=== PATIENT | female | born 1990 | race Caucasian/White ===

== ENCOUNTER 2024-08-15 07:56 | Outpatient (AMB) | payer OTHER, SELFPAY ==
--- NOTE | 2024-08-15 08:07 | MHC.PC.OV ---
Vital Signs 08/15/24 08:08 Height 5 ft 8.9 in Weight 183 lb BMI 27.1 BP 90/66 Blood Pressure Location Lt brachial Position Sitting Pulse 70 Pulse Source Pulse Oximeter Temp 97.1 F Temp Source Skin Pulse Oximetry (%) 96 Oxygen Delivery Method Room Air Intake Visit Reasons: establish care Intake Note: Patient is a new patient here to establish care for Asthma, GI issues, Possible Anemia, Scalp issues, Abnormal cycle, Depression, Anxiety, ADHD . Transferring care from Dr Carlton . Medical records have been requested and have not received. Requesting for dermatology for scalp, GI for stomach issues, GNY for abnormal cycle, Sheet Tester Required: No Braiding Operator: Not Required per policy Accompanied by: Self / Same As Patient Allergies acetaminophen [From Percocet] Allergy (Intermediate, Verified 08/15/24 08:26) upset stomach oxycodone [From Percocet] Allergy (Intermediate, Verified 08/15/24 08:26) upset stomach Medication List - Last Reconciled 08/15/24 by Cris Burden PA-C albuterol sulfate 90 mcg/actuation 2 puffs inhalation Q6H PRN Tobacco use date assessed: 08/15/24 Dental Screening Dental Screen Date: 08/15/24 Did you have a dental visit in the last 12 months?: Yes Did you have a dental problem in the last 6 months where you did not have access to dental care?: No Was dental information given to patient?: Patient has dentist HPI establish care HPI Details 34-year-old female coming to the office for the 1st time. Patient is not known to [facility]. Patient tells us today she was previously being seen as a pediatric patient has not had any adult PCP in the past. She has not had a Pap smear yet. She has tried hormonal contraceptive pills in the past and finds they are not helpful for her and come with mood issues. She sees a therapist weekly [facility] and is on a wait list for their psychiatrist. She has a prior diagnosis of anxiety, depression and ADHD and has not been treated for these since high school. She was on Lexapro and possibly Lamictal in the past without good benefit. She tells us she has an extensive list of foods that she can not eat and we will have epigastric pain after eating. Primarily with tomato based products and caffeine. With the epigastric pain she will often have nausea and does have alternating diarrhea and constipation. She was given Zofran in the past for her nausea which she finds helpful. Her pain typically last for several hours after eating before resolving spontaneously. [facility] Surgical History History of wisdom tooth extraction Family History Other Mental health disorder Substance use disorder Social History Housing: Apartment Alcohol intake: never Patient Tobacco Use Status: Former Tobacco user e-Cigarette/Vaping Use: Currently Using Second Hand Smoke Exposure: Yes Substance Use Type: Marijuana service: No Current occupational status: unemployed Cognitive needs: No Hearing needs: No Vision needs: Yes (Glasses) Female Reproductive History Menstrual control method: none Total pregnancies: 1 Ab induced: 1 History of abnormal pap smear: No Questionnaire PHQ-9 Over the last 2 weeks, how often have you been bothered by any of the following problems? 1. Little interest or pleasure in doing things: nearly every day 2. Feeling down, depressed, or hopeless: more than half the days 3. Trouble falling or staying asleep, or sleeping too much: nearly every day 4. Feeling tired or having little energy: nearly every day 5. Poor appetite or overeating: nearly every day 6. Feeling bad about yourself - or that you are a failure or have let yourself or your family down: not at all 7. Trouble concentrating on things, such as reading the newspaper or watching television: nearly every day 8. Moving or speaking so slowly that other people could have noticed. Or the opposite - being so fidgety or restless that you have been moving around a lot more than usual: nearly every day 9. Thoughts that you would be better off or of hurting yourself in some way: not at all Total score: 20 Depression Screening Interpretation: Positive Depression Screening Done: Yes Source: Developed by Drs. Nirav Mario, Brigette Blank, Ty Capone and colleagues, with an educational lelia from [employer] Thrive Questionnaire Date Thrive assessed: 08/15/24 I am a: Patient What is your living situation today?: I have a steady place to live Within the past 12 months, did the food you bought not last and you didn't have the money to get more?: Sometimes True Within the past 12 months, did you worry whether your food would run out before you got money to buy more?: Sometimes True Do you have trouble paying for medicines?: No Do you have trouble getting transportation to medical appointments?: No Do you have trouble paying your heating and electricity bill?: No Do you have trouble taking care of your child, family member or friend?: No Do you have trouble with day-to-day activities such as bathing, preparing meals, shopping, managing finances, etc.?: I choose not to answer this question Are you currently unemployed and looking for a job?: Yes Are you interested in more education?: Yes Please select the resources that you would like help with: None Currently or been in a relationship where the following occur: No concerns reported THRIVE Score: 2 AUDIT C Alcohol Use Questionnaire (AUDIT-C) 1. How often do you have a drink containing alcohol?: Never Total Score: 0 RAUDEL-7 AMB Questionnaire RAUDEL-7 Date RAUDEL - 7 assessed: 08/15/24 Feeling nervous, anxious, or on edge: 3 = Nearly every day Not being able to stop or control worryin = Nearly every day Worrying too much about different things: 3 = Nearly every day Trouble relaxin = Nearly every day Being so restless that it is hard to sit still: 3 = Nearly every day Becoming easily annoyed or irritable: 3 = Nearly every day Feeling afraid as if something awful might happen: 3 = Nearly every day Total RAUDEL-7 score (0-4 normal; 5-9 mild; 10-14 moderate; 15-21 severe): 21 Source: Developed by Drs. Nirav Mario, Brigette Blank, Ty Capone and colleagues, with an educational lelia from [employer] RAUDEL-7 Assessment Billing RAUDEL-7 Assessment Tool: RAUDEL-7 Assessment 77833 Review of Systems Const Denies body aches, Denies chills, Denies fever(s), Denies headache(s) and Denies poor appetite Eyes Reports no additional complaints ENT Denies dysphagia, Denies dizziness, Denies headache(s) and Denies odynophagia Card Denies chest pain, Denies syncope, Denies edema, Denies irregular heart rhythm, Denies lightheadedness and Denies dyspnea Resp Denies cough and Denies dyspnea GI Reports abdominal pain, Reports constipation, Denies dysphagia, Reports diarrhea, Reports nausea, Denies odynophagia and Denies vomiting Reports abnormal menses Musc Reports no additional complaints and Denies abnormal gait Skin/Breast Reports system reviewed and no additional complaints, except as documented Neuro Denies abnormal gait, Denies dizziness, Denies syncope and Denies headache(s) Psych Reports anxiety and Reports depression Physical exam (Primary Care) Vital Signs: Last Vital Signs Temp 97.1 F 08/15/24 08:08 Pulse 70 08/15/24 08:08 BP 90/66 08/15/24 08:08 Pulse Ox 96 08/15/24 08:08 Oxygen Delivery Method Room Air 08/15/24 08:08 BMI result Body Mass Index 27.1 Tobacco/Smoking Status: Tobacco use Status Tobacco use date assessed 08/15/24 08/15/24 08:20 Patient Tobacco Use Status Former Tobacco user 08/15/24 08:20 e-Cigarette/Vaping Use Currently Using 08/15/24 08:20 PHQ-9: PHQ-9 Score PHQ-9: Total score 08/15/24 11:14 Depression Screening Interpretation: Positive Thrive Assessment: Date of Thrive Assessment Date Thrive assessed 08/15/24 08/15/24 08:20 Currently or been in a relationship where the following occur: No concerns reported Const General: cooperative, healthy appearing, comfortable and no acute distress Orientation/consciousness: patient oriented x3 [facility] Head: Yes normocephalic Ears: hearing grossly normal bilaterally General nose exam: Normal external nose present Eyes General: appearance normal, both eyes and all related structures Conjunctivae: conjunctivae normal Neck Neck: Yes full ROM and Yes no lymphadenopathy Resp Effort & Inspection: normal respiratory effort Auscultation: clear to auscultation bilaterally, no crackles, no rales, no rhonchi and no wheezes Cardio Rate: regular rate Rhythm: regular rhythm Skin General skin exam: no rashes or lesions noted Neuro General: patient oriented x3 Gait exam (Neuro): Normal gait present Extrem General: Yes normal to inspection, Yes full ROM and No edema Psych Affect: normal affect Attitude: cooperative Insight: Good insight present (Psych) Judgement: Good judgement present (Psych) Results AMB Test Urine AMB Test Urine Positive Last Edit by BRODERICK Nichols on 08/15/24 08:53 Results Reviewed Results Reviewed: Laboratory Last Values Tst Clinic Positive 08/15/24 08:50 Coding Level of Care Code New Pt Level 4 (85765) Diagnoses Depression F32.A Anxiety F41.9 ADHD F90.9 Asthma J45.909 Cervical cancer screening Z12.4 Diarrhea R19.7 Constipation K59.00 Epigastric pain R10.13 Late menses N92.6 Additional Codes RAUDEL-7 Assessment Billing - RAUDEL-7 Assessment Tool: RAUDEL-7 Assessment 54128 ([id number]) Assessment & Plan Assessment & Plan (1) Depression: Comment: Counselor through [facility] weekly Code(s): F32.A - Depression, unspecified Category: Medical Plan: Patient has a past history of depression was treated with SSRIs. She is declining any SSRI at this time and would like to be seen and evaluated by Psychiatry. Referral placed to outpatient psych clinic and advised patient to continue on the [facility] list for psychiatrist. (2) Anxiety: Comment: Counselor through [facility] weekly Code(s): F41.9 - Anxiety disorder, unspecified Category: Medical Plan: Previous history of anxiety was on hydroxyzine in the past without good benefit would like to be evaluated by Psychiatry. Referral placed to outpatient psych clinic. (3) ADHD: Code(s): F90.9 - Attention-deficit hyperactivity disorder, unspecified type Category: Medical Plan: Has a history of being treated with stimulant medications and did not find them beneficial and found that they had weight loss with this medication. Has also tried Strattera in the past without good benefit. Currently following with a counselor weekly and referral placed to outpatient psych clinic. (4) Asthma: Code(s): J45.909 - Unspecified asthma, uncomplicated Category: Medical Plan: Asthma currently controlled on present medications. Continue on albuterol as needed. Avoid triggers such as allergies. (5) Cervical cancer screening: Code(s): Z12.4 - Encounter for screening for malignant neoplasm of cervix Category: Medical Plan: Referral placed to [facility] gynecology for routine Pap smears. (6) Diarrhea: Code(s): R19.7 - Diarrhea, unspecified Category: Medical Plan: Patient tells us today she has alternating constipation and diarrhea without any known trigger. She has tried different diets not find them helpful. Discussed with patient possibility of a low FODMAP diet which was declined. Ordered blood work to rule out celiac disease and advised patient to avoid her trigger foods. Can consider referral to GI (7) Constipation: Code(s): K59.00 - Constipation, unspecified Category: Medical Plan: Advised patient to stay well hydrated and have fiber rich foods in the diet. Patient declining low FODMAP diet at this time states she has tried in the past and is unwilling to give up dairy. (8) Epigastric pain: Code(s): R10.13 - Epigastric pain Category: Medical Plan: Patient having epigastric pain intermittently primarily after food and worse with certain foods including tomato based products and caffeine. Discussed with patient this is likely a GERD related picture we will try pantoprazole 20 mg daily to monitor for symptom improvement. Also ordered for H pylori testing. Can consider referral to GI if symptoms worsen or do not improve (9) Late menses: Code(s): N92.6 - Irregular menstruation, unspecified Category: Medical Plan: Patient complaining of being 5 days late for menstrual cycle. Urine in the office is positive today patient wishes to undergo elective . Plan This note was constructed using voice recognition software. While every effort has been made to ensure accuracy and quilter fixer, still areas may have been included sometimes these areas may affect the content or meeting of the given symptoms. Total time spent caring for the patient today was 30 minutes. This includes time spent before the visit reviewing the chart, time spent during the visit, and time spent after the visit and documentation. Orders: Orders Vitamin B12 and Folate Today Z00.00 - Encounter for general adult medical examination without abnormal findings TSH reflex Free T4 Today Z00.00 - Encounter for general adult medical examination without abnormal findings Free T4 (Free Thyroxine) Today Z00.00 - Encounter for general adult medical examination without abnormal findings Transglutaminase Ab IgG Today K59.00 - Constipation, unspecified, R19.7 - Diarrhea, unspecified Complete Blood Count Auto Diff Today Z00.00 - Encounter for general adult medical examination without abnormal findings Comprehensive Met. Panel Today Z00.00 - Encounter for general adult medical examination without abnormal findings Vitamin D 25-OH Total Today Z00.00 - Encounter for general adult medical examination without abnormal findings IRON PROFILE Today E61.1 - Iron deficiency AMB HCG Urine Test Today N92.6 - Irregular menstruation, unspecified H pylori Ag Stool Today K59.00 - Constipation, unspecified, R10.13 - Epigastric pain Referrals [employer] Referral Z12.4 - Encounter for screening for malignant neoplasm of cervix Psychiatry Outpatient Consultation Service F41.9 - Anxiety disorder, unspecified, F90.9 - Attention-deficit hyperactivity disorder, unspecified type, J45.909 - Unspecified asthma, uncomplicated Medications: New pantoprazole 20 mg PO DAILY 90 tabs 0RF ondansetron 4 mg PO Q8H PRN 14 tabs 0RF nausea and vomiting albuterol sulfate 90 mcg/actuation 2 puffs inhalation Q6H PRN 6.7 grams 0RF bronchospasm
[2024-08-15 08:08] VITALS: BP 90/66; PULSE 70; TEMP 36.2; O2SAT 96; BMI 27.1
== END 2024-08-15 08:53 | disposition home or self-care (01) ==
DX: F32.A Depression, unspecified (principal); F41.9 Anxiety disorder, unspecified; F90.9 Attention-deficit hyperactivity disorder, unspecified type; J45.909 Unspecified asthma, uncomplicated; Z12.4 Encounter for screening for malignant neoplasm of cervix; R19.7 Diarrhea, unspecified; K59.00 Constipation, unspecified; R10.13 Epigastric pain; N92.6 Irregular menstruation, unspecified

== ENCOUNTER 2024-08-15 07:56 | Outpatient (REF) | payer OTHER, SELFPAY ==
[2024-08-15 09:30] LABS: MANUAL DIFF FLAG NO
[2024-08-15 09:41] LABS: Basophils Percent Auto 0.5 % (0-2); Eosinophils Absolute Auto 0.1 X10*3/uL (0.0-0.4); Eosinophils Percent Auto 1.6 % (0-4); Hematocrit 40.5 % (37.0-47.0); Hemoglobin 13.4 g/dl (12.0-16.0); Imm Gran Abs Auto 0.01 X10*3/uL (0.00-0.03); Imm Gran Pct Auto 0.2 % (0.0-0.4); Lymphocytes Absolute Auto 2.2 X10*3/uL (1.2-4.9); Lymphocytes Percent Auto 35.7 % (20-40); Mean Corpuscular HGB Conc 33.1 g/dl (31.0-35.0); Mean Corpuscular Hemoglobin 30.4 pg (27.0-33.0); Mean Corpuscular Volume 91.8 fL (80.0-98.0); Mean Platelet Volume 9.2 fL (9.4-12.3); Monocytes Absolute Auto 0.4 X10*3/uL (0.1-1.2); Monocytes Percent Auto 5.7 % (2-11); Neutrophils Absolute Auto 3.5 x10*3/uL (2.0-8.3); Neutrophils Percent Auto 56.3 % (45-73); Platelet Count 260 X10*3/uL (160-400); Red Blood Count 4.41 X10*6/uL (4.20-5.50); Red Cell Distribution Width 12.2 % (11.0-16.0); White Blood Count 6.3 X10*3/uL (4.8-10.8)
[2024-08-15 10:09] LABS: Alanine Aminotransferase 21 U/L (0-31); Albumin Level 4.3 g/dL (3.5-5.0); Alkaline Phosphatase 40 U/L (39-117); Anion Gap 9 (12-20); Aspartate Amino Transferase 21 U/L (5-31); Bilirubin Total 0.4 mg/dL (0.0-1.0); Blood Urea Nitrogen 11 mg/dL (9-16); Calcium 9.5 mg/dL (8.4-10.2); Carbon Dioxide 25 mmol/L (22-29); Chloride 108 mmol/L (96-108); Estimated Glomerular Filt Rate > 60; Glucose Random 115 mg/dL (60-115); Iron 82 mcg/dL (30-160); Percent Iron Saturation 27 % (15-50); Potassium 3.8 mmol/L (3.3-5.1); Sodium 138 mmol/L (135-145); Total Iron Binding Capacity 299 mcg/dL (228-428); Total Protein 7.6 g/dL (6.5-8.0); Unsaturated Iron Binding 217 ug/dL
[2024-08-15 10:26] LABS: Free T4 (Free Thyroxine) 0.88 ng/dL (0.71-1.85); TSH reflex Free T4 1.38 uIU/mL (0.32-4.0); Vitamin D 25-OH Total 13.7 ng/mL (>30)
[2024-08-15 10:36] LABS: Folate 16.3 ng/mL (> or = 4.0); Vitamin B12 555 pg/mL (200-900)
[2024-08-16 19:48] LABS: Transglutaminase Ab IgG <1.0 U/mL
== END 2024-08-15 07:57 | disposition home or self-care (01) ==
LOC: HO.LAB 07:56
DX: F32.A Depression, unspecified (principal); F41.9 Anxiety disorder, unspecified; F90.9 Attention-deficit hyperactivity disorder, unspecified type; J45.909 Unspecified asthma, uncomplicated; R19.7 Diarrhea, unspecified; K59.00 Constipation, unspecified; R10.13 Epigastric pain; N92.6 Irregular menstruation, unspecified; E61.1 Iron deficiency; Z00.00 Encounter for general adult medical examination without abnormal findings
CPT/HCPCS: 36415; 80053; 81025; 82306; 82607; 82746; 83540; 84439; 84443; 85025; 86364; 96127; 99202

== ENCOUNTER 2024-09-16 09:28 | Outpatient (AMB) | payer OTHER, SELFPAY ==
[2024-09-16 09:38] VITALS: BP 122/68; PULSE 81; O2SAT 99; BMI 26.5
--- NOTE | 2024-09-16 09:38 | A.OFFPC_ITS ---
Vital Signs 09/16/24 09:38 Height 5 ft 8.9 in Weight 179 lb BMI 26.5 BP 122/68 Blood Pressure Location Lt brachial Position Sitting Pulse 81 Pulse Source Pulse Oximeter Pulse Oximetry (%) 99 Oxygen Delivery Method Room Air Intake Visit Reasons: 1 month f/u Allergies acetaminophen [From Percocet] Allergy (Intermediate, Verified 09/16/24 09:44) upset stomach oxycodone [From Percocet] Allergy (Intermediate, Verified 09/16/24 09:44) upset stomach Medication List - Last Reconciled 09/16/24 by Cris Burden PA-C albuterol sulfate 90 mcg/actuation 2 puffs inhalation Q6H PRN ondansetron 4 mg PO Q8H PRN pantoprazole 20 mg PO DAILY Tobacco use date assessed: 08/15/24 Dental Screening Dental Screen Date: 09/16/24 Did you have a dental visit in the last 12 months?: No Did you have a dental problem in the last 6 months where you did not have access to dental care?: No Was dental information given to patient?: Patient has dentist HPI 1 month f/u HPI Details 34-year-old female with past medical his tory of asthma, ADHD, anxiety, depression last seen 07/2024 coming in for follow up. Presenting with dermatological concerns and medication follow-up. Reports skin condition potentially indicative of possible psoriasis or eczema on the scalp, extending to ears. Current management of GERD with pantoprazole shows improvement in symptoms; heartburn occurs with non-adherence. Asthma well- controlled, with sporadic albuterol usage, increased during recent household flu outbreak. At her last visit patient was found to be patient [facility] [place] and had follow up with [facility] gynecology. She is working with [employer] to undergo bilateral tubal ligation in the next coming months. [facility] Surgical History History of wisdom tooth extraction Family History Other Mental health disorder Substance use disorder Social History Housing: Apartment Alcohol intake: never Patient Tobacco Use Status: Former Tobacco user Tobacco use type: Cigarette e-Cigarette/Vaping Use: Currently Using Second Hand Smoke Exposure: Yes Substance Use Type: Marijuana service: No Current occupational status: unemployed Cognitive needs: No Hearing needs: No Vision needs: Yes (Glasses) Questionnaire PHQ-9 Over the last 2 weeks, how often have you been bothered by any of the following problems? 1. Little interest or pleasure in doing things: nearly every day 2. Feeling down, depressed, or hopeless: more than half the days 3. Trouble falling or staying asleep, or sleeping too much: nearly every day 4. Feeling tired or having little energy: nearly every day 5. Poor appetite or overeating: nearly every day 6. Feeling bad about yourself - or that you are a failure or have let yourself or your family down: not at all 7. Trouble concentrating on things, such as reading the newspaper or watching television: nearly every day 8. Moving or speaking so slowly that other people could have noticed. Or the opposite - being so fidgety or restless that you have been moving around a lot more than usual: nearly every day 9. Thoughts that you would be better off or of hurting yourself in some way: not at all Total score: 20 Depression Screening Interpretation: Positive Depression Screening Follow-up: Existing condition and In treatment Depression Screening Done: Yes Source: Developed by Drs. Nirav Mario, Brigette Blank, Ty Capone and colleagues, with an educational lelia from [employer] Thrive Questionnaire Date Thrive assessed: 08/15/24 I am a: Patient What is your living situation today?: I have a steady place to live Within the past 12 months, did the food you bought not last and you didn't have the money to get more?: Sometimes True Within the past 12 months, did you worry whether your food would run out before you got money to buy more?: Sometimes True Do you have trouble paying for medicines?: No Do you have trouble getting transportation to medical appointments?: No Do you have trouble paying your heating and electricity bill?: No Do you have trouble taking care of your child, family member or friend?: No Do you have trouble with day-to-day activities such as bathing, preparing meals, shopping, managing finances, etc.?: I choose not to answer this question Are you currently unemployed and looking for a job?: Yes Are you interested in more education?: Yes Please select the resources that you would like help with: None Currently or been in a relationship where the following occur: No concerns reported THRIVE Score: 2 AUDIT C Alcohol Use Questionnaire (AUDIT-C) 3. How often do you have six or more drinks on one occasion?: Never Total Score: 0 RAUDEL-7 AMB Questionnaire RAUDEL-7 Date RAUDEL - 7 assessed: 08/15/24 Source: Developed by Drs. Nirav Mario, Brigette Blank, Ty Capone and colleagues, with an educational lelia from [employer] Review of Systems Const Denies body aches, Denies chills, Denies fever(s), Denies headache(s) and Denies poor appetite Eyes Reports no additional complaints ENT Denies dysphagia, Denies dizziness, Denies headache(s) and Denies odynophagia Card Denies chest pain, Denies syncope, Denies edema, Denies irregular heart rhythm, Denies lightheadedness and Denies dyspnea Resp Denies cough and Denies dyspnea GI Denies abdominal pain, Denies constipation, Denies dysphagia, Denies diarrhea, Denies nausea, Denies odynophagia and Denies vomiting Reports no additional complaints Musc Reports no additional complaints and Denies abnormal gait Skin/Breast Reports system reviewed and no additional complaints, except as documented Neuro Denies abnormal gait, Denies dizziness, Denies syncope and Denies headache(s) Psych Reports no additional complaints Physical exam (Primary Care) Vital Signs: Last Vital Signs Pulse 81 09/16/24 09:38 BP 122/68 09/16/24 09:38 Pulse Ox 99 09/16/24 09:38 Oxygen Delivery Method Room Air 09/16/24 09:38 BMI result Body Mass Index 26.5 Tobacco/Smoking Status: Tobacco use Status Tobacco use date assessed 08/15/24 09/16/24 09:42 Patient Tobacco Use Status Former Tobacco user 09/16/24 09:42 Tobacco use type Cigarette 09/16/24 09:42 e-Cigarette/Vaping Use Currently Using 09/16/24 09:42 PHQ-9: PHQ-9 Score PHQ-9: Total score 20 09/16/24 09:51 Depression Screening Interpretation: Positive Depression Screening Follow-up: Existing condition and In treatment Thrive Assessment: Date of Thrive Assessment Date Thrive assessed 08/15/24 09/16/24 09:42 Currently or been in a relationship where the following occur: No concerns reported Const General: cooperative, healthy appearing, comfortable and no acute distress Orientation/consciousness: patient oriented x3 HENMT Head: Yes normocephalic Ears: hearing grossly normal bilaterally General nose exam: Normal external nose present Eyes General: appearance normal, both eyes and all related structures Conjunctivae: conjunctivae normal Neck Neck: Yes full ROM and Yes no lymphadenopathy Resp Effort & Inspection: normal respiratory effort Auscultation: clear to auscultation bilaterally, no crackles, no rales, no rhonchi and no wheezes Cardio Rate: regular rate Rhythm: regular rhythm Skin General skin exam: no rashes or lesions noted Neuro General: patient oriented x3 Gait exam (Neuro): Normal gait present Extrem General: Yes normal to inspection, Yes full ROM and No edema Psych Affect: normal affect Attitude: cooperative Insight: Good insight present (Psych) Judgement: Good judgement present (Psych) Immunizations Boostrix Tdap 2.5 Lf unit-8 mcg-5 Lf/0.5 mL intramuscular syringe Performing Provider: Cris Burden PA-C [place] [facility] [facility] [place] [facility] Administered by: BRODERICK Ramon on 09/16/24 10:11 Dose Route Admin Location Dispensed Lot Number Expiration Date NDC [employer] 0.5 mL IM Left Deltoid 0.5 mL [id number] 10/12/26 [id number] [employer] VIS Given Date VIS Provided VIS Publication Date 09/16/24 Single Vaccine 21 Eligibility Eligibility Date Funding Source Not [facility] Eligible 09/16/24 Private Coding Level of Care Code Est Pt Level 3 (77030) Diagnoses Depression F32.A Anxiety F41.9 ADHD F90.9 Asthma J45.909 Dermatitis L30.9 Z34.90 Diarrhea R19.7 GERD (gastroesophageal reflux disease) K21.9 Assessment & Plan Assessment & Plan (1) Depression: Comment: Counselor through [facility] Code(s): F32.A - Depression, unspecified Category: Medical Plan: Referral placed to outpatient psych clinic at last visit. Continue to follow with counselor. (2) Anxiety: Comment: Counselor through [facility] weekly Code(s): F41.9 - Anxiety disorder, unspecified Category: Medical Plan: Referral placed to outpatient psych clinic at last visit. Continue to follow with counselor. (3) ADHD: Code(s): F90.9 - Attention-deficit hyperactivity disorder, unspecified type Category: Medical Plan: Referral placed to outpatient psych clinic at last visit. Continue to follow with counselor. (4) Asthma: Code(s): J45.909 - Unspecified asthma, uncomplicated Category: Medical Plan: Asthma currently controlled on present medications. Continue on albuterol as needed. Avoid triggers such as allergies. (5) Dermatitis: Code(s): L30.9 - Dermatitis, unspecified Category: Medical Plan: Complaining of scalp itching and flaking. Referred to dermatology for evaluation and management; advised on interim use of medicated shampoos. (6) : Code(s): Z34.90 - Encounter for supervision of normal , unspecified, unspecified trimester Category: Medical Plan: Patient had positive test at last visit [facility] [place] and [facility] seen for follow [facility] by [facility]. She continues to follow with [facility] and is planning to have a bilateral tubal ligation in the next coming months. Continue to follow with gynecology. (7) Diarrhea: Code(s): R19.7 - Diarrhea, unspecified Category: Medical Plan: With the use of pantoprazole and dietary modification diarrhea has mostly resolved. (8) GERD (gastroesophageal reflux disease): Code(s): K21.9 - Gastro-esophageal reflux disease without esophagitis Category: Medical Plan: Avoid trigger foods such as citrus, tomato products, soda, caffeine, spicy foods and other foods that may be irritating to your stomach. Avoid laying flat 3-4 hours after eating and elevate the head of the bed 30 degrees to prevent acid from moving into the esophagus. Continue on pantoprazole 20 mg. Patient states her epigastric pain and dietary issues have mostly resolved with the use of pantoprazole. Plan This note was constructed using voice recognition software. While every effort has been made to ensure accuracy and core fitter, still areas may have been included sometimes these areas may affect the content or meeting of the given symptoms. Total time spent caring for the patient today was 20 minutes. This includes time spent before the visit reviewing the chart, time spent during the visit, and time spent after the visit and documentation. Orders: Orders TDaP Immunization Today Z23 - Encounter for immunization Referrals Dermatology Referral L30.9 - Dermatitis, unspecified Medications: New Boostrix Tdap (diphth,pertus(acell),tetanus) 0.5 mL IM ONCE 0.5 mL 0RF NS Z23 - Encounter for immunization ketoconazole 2% 1 appl topical 2XW 120 mL 0RF
--- OUTSIDE RECORDS SUMMARY | 2024-09-16 10:16 | XMS_ITS | Clinical Summary ---
Author Organization [employer] Address [address] [place] [address] Care Team Providers Care Globe Tester Name Role Phone Unavailable Primary Care Provider Unavailabl e Allergies Active Allergy Reactions Criticality Noted Date Comments Oxycodone-Acetaminophen 04/08/2010 Other Reaction(s): GI Intolerance Medications albuterol 108 (90 Base) MCG/ACT inhaler Inhale 2 puffs every 6 (six) hours if needed. 06/26/2021 Active Active Problems No known active problems Social History Tobacco Use Types Packs/Day Years Used Date Smoking Tobacco: Some Days Cigarettes Tobacco Cessation:Ready to Q uit: Not Asked; Counseling Given: Not Answered Comments:Vape Alcohol Use Standard Drinks/Week Comments Defer 0 (1 standard drink = 0.6 oz pur e alcohol) Comments Unknown Sex and Gender Information Value Date Recorded Sex Assigned at Female 05/15/2024 9:23 AM EDT Legal Sex Female 9:19 AM EDT Gender Identity Female 05/15/2024 9:23 AM EDT Sexual Orientation Choose not to disclose 2023 9:23 AM EDT Last Filed Vital Signs Vital Sign Reading Time Taken Comments Blood Pressure 132/86 05/17/2024 8:07 AM EDT Pulse 60 05/17/2024 8:07 AM EDT Temperature - - Respiratory Rate - - Oxygen Saturation - - Inhaled Oxygen Concentration - - Weight - - Height - - Body Mass Index - - Plan of Treatment Health Maintenance Due Date Last Done Comments Depression Screening 1991 HIV Screening 1991 Lipid Panel 1991 SDOH Screening 1991 Alcohol/Substance Use Screening 2003 Family Planning (PISQ) 2006 Hepatitis C Screening 2009 Pneumococcal Vaccine: Pediatrics (0 to 5 Years) and At-Risk Patients (6 to 49) Years) (1 of 2 - PCV) 2010 Pap Smear 2012 DTaP/Tdap/Td Vaccines (7 - Td or Tdap) 10/08/2018 10/08/2008, 02/13/2002, 12/15/1995, Additional history exists Cervical Cancer Screening 2021 HPV/Cotest 2021 COVID-19 Vaccine (1 - season) 2024 Influenza Vaccine (#1) 2024 04/11/2011, 2009 Dental Oral Exam 11/16/2024 05/17/2024 Dental Prophylaxis 11/16/2024 05/17/2024 Tobacco Screening 05/17/2025 05/17/2024 Dental X-Ray: Bitewings 05/18/2025 05/17/2024, 05/15 Dental X-Ray: Full Mouth 05/18/2027 05/17/2024 Zoster Vaccines (1 of 2) 2041 RSV Patients and Patients Aged 60 years or older (1 - 1-dose 75+ series) 2066 HIB Vaccines Completed 09/04/1992, 10/1991, 1991, Additional history exists IPV Vaccines Completed 12/15/1995, 08/24, 1991, Additional history exists Hepatitis B Vaccines Completed 08/15/2006, 04/16/2003, 04/19/2002 Meningococcal Vaccine Completed 10/08/2008 HPV Vaccines Aged Out No longer eligi ble based on patient's age to complete this topic Hepatitis A Vaccines Aged Out No long er eligible based on patient's age to complete this topic RSV under 20 months Aged Out No longe r eligible based on patient's age to complete this topic Rotavirus Vaccines Aged Out No longer eligible based on patient's age to complete this topic Procedures Procedure Name Priority Date/Time Associated Diagnosis Comments PROPHYLAXIS - ADULT Routine 05/17/2024 8 :00 AM EDT INTRAORAL - COMPLETE SERIES OF RADIOGRAPHIC IMAGES Routine 05/17/2024 8:00 AM EDT COMPREHENSIVE ORAL EVALUATION - NEW OR ESTABLISHED PATIENT Routine 05/17/2024 8:00 AM EDT from Last 3 Months or Most Recently Relevant to Health Maintenance Insurance [facility] [employer] STAND ADULT
== END 2024-09-16 10:15 | disposition home or self-care (01) ==
DX: F32.A Depression, unspecified (principal); F41.9 Anxiety disorder, unspecified; F90.9 Attention-deficit hyperactivity disorder, unspecified type; J45.909 Unspecified asthma, uncomplicated; L30.9 Dermatitis, unspecified; Z34.90 Encounter for supervision of normal pregnancy, unspecified, unspecified trimester; R19.7 Diarrhea, unspecified; K21.9 Gastro-esophageal reflux disease without esophagitis; Z23 Encounter for immunization

== ENCOUNTER → 2024-09-16 09:28 | Outpatient (BNVA) | payer OTHER, SELFPAY | DX: Z23 Encounter for immunization (principal); F32.A Depression, unspecified; F41.9 Anxiety disorder, unspecified; F90.9 Attention-deficit hyperactivity disorder, unspecified type; J45.909 Unspecified asthma, uncomplicated; L30.9 Dermatitis, unspecified; R19.7 Diarrhea, unspecified; K21.9 Gastro-esophageal reflux disease without esophagitis | CPT/HCPCS: 90471; 90715; 99212 ==

== ENCOUNTER 2024-12-17 10:56 | Outpatient (AMB) | payer OTHER, SELFPAY ==
--- NOTE | 2024-12-17 11:00 | A.OFFPC_ITS ---
Vital Signs 12/17/24 11:02 Height 5 ft 8.9 in Weight 171 lb 6 oz BMI 25.4 BP 112/72 Blood Pressure Location Lt brachial Position Sitting Pulse 82 Pulse Source Pulse Oximeter Temp 97.3 F Temp Source Temporal Artery Scan Pulse Oximetry (%) 98 Oxygen Delivery Method Room Air Intake Visit Reasons: 3 month follow up Intake Note: Patient is here to follow up on GERD, Asthma. Product Safety Administrator Required: No Metal Hanging Helper: Not Required per policy Accompanied by: Self / Same As Patient Allergies acetaminophen [From Percocet] Allergy (Intermediate, Verified 12/17/24 11:17) upset stomach oxycodone [From Percocet] Allergy (Intermediate, Verified 12/17/24 11:17) upset stomach Medication List - Last Reconciled 12/17/24 by Cris Burden PA-C albuterol sulfate 90 mcg/actuation 2 puffs inhalation Q6H PRN ketoconazole 2% 1 appl topical 2XW ondansetron 4 mg PO Q8H PRN pantoprazole 20 mg PO DAILY Tobacco use date assessed: 12/17/24 Dental Screening Dental Screen Date: 09/16/24 HPI 3 month follow up HPI Details 34-year-old female with past medical his tory of asthma, ADHD, anxiety and depression last seen 08/2024 coming in for follow up.? Referral was placed to outpatient psych clinic at last visit. Presenting for postoperative care and management of ongoing health issues. She has an impending tubal ligation surgery deferred to fall due to work obligations. There are issues with psychotherapy and counseling, with an expedited waitlist due to a psychiatrist shortage. She reports improvement in her scalp Seborrheic Dermatitis with the use of ketoconazole shampoo. GERD is managed with pantoprazole, though adherence challenges exist with a variable schedule. Constipation remains an issue, with unchanging symptoms despite some dietary improvements. 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 A prescription for Plan B is pursued following unprotected intercourse. [facility] Medical History (Updated 12/17/24 @ 11:35 by Cris Burden PA-C) Surgical History History of wisdom tooth extraction Family History Other Mental health disorder Substance use disorder Social History Housing: Apartment Alcohol intake: never Patient Tobacco Use Status: Former Tobacco user Tobacco use type: Cigarette e-Cigarette/Vaping Use: Currently Using Second Hand Smoke Exposure: Yes Substance Use Type: Marijuana service: No Current occupational status: unemployed Cognitive needs: No Hearing needs: No Vision needs: Yes (Glasses) Questionnaire Thrive Questionnaire Date Thrive assessed: 08/15/24 I am a: Patient What is your living situation today?: I have a steady place to live Within the past 12 months, did the food you bought not last and you didn't have the money to get more?: Sometimes True Within the past 12 months, did you worry whether your food would run out before you got money to buy more?: Sometimes True Do you have trouble paying for medicines?: No Do you have trouble getting transportation to medical appointments?: No Do you have trouble paying your heating and electricity bill?: No Do you have trouble taking care of your child, family member or friend?: No Do you have trouble with day-to-day activities such as bathing, preparing meals, shopping, managing finances, etc.?: I choose not to answer this question Are you currently unemployed and looking for a job?: Yes Are you interested in more education?: Yes Please select the resources that you would like help with: None Currently or been in a relationship where the following occur: No concerns reported THRIVE Score: 2 AUDIT C Alcohol Use Questionnaire (AUDIT-C) 2. How many drinks containing alcohol do you have on a typical day when you are drinking?: 1 or 2 Total Score: 0 RAUDEL-7 AMB Questionnaire RAUDEL-7 Date RAUDEL - 7 assessed: 08/15/24 Source: Developed by Drs. Nirav Mario, Brigette Blank, Ty Capone and colleagues, with an educational lelia from August. Review of Systems Const Denies body aches, Denies chills, Denies fever(s) and Denies poor appetite Eyes Reports no additional complaints ENT Denies dizziness Card Denies chest pain, Denies irregular heart rhythm and Denies dyspnea Resp Denies cough and Denies dyspnea GI Denies abdominal pain, Reports constipation, Denies diarrhea, Denies nausea and Denies vomiting Skin/Breast Reports system reviewed and no additional complaints, except as documented Neuro Denies dizziness Psych Reports no additional complaints Physical exam (Primary Care) Vital Signs: Last Vital Signs Temp 97.3 F 12/17/24 11:02 Pulse 82 12/17/24 11:02 BP 112/72 12/17/24 11:02 Pulse Ox 98 12/17/24 11:02 Oxygen Delivery Method Room Air 12/17/24 11:02 BMI result Body Mass Index 25.4 Tobacco/Smoking Status: Tobacco use Status Tobacco use date assessed 12/17/24 12/17/24 11:06 Patient Tobacco Use Status Former Tobacco user 12/17/24 11:06 Tobacco use type Cigarette 12/17/24 11:06 e-Cigarette/Vaping Use Currently Using 12/17/24 11:06 Thrive Assessment: Date of Thrive Assessment Date Thrive assessed 08/15/24 12/17/24 11:06 Currently or been in a relationship where the following occur: No concerns reported Const General: cooperative, healthy appearing, comfortable and no acute distress Orientation/consciousness: patient oriented x3 HENMT Head: Yes normocephalic Ears: hearing grossly normal bilaterally General nose exam: Normal external nose present Eyes General: appearance normal, both eyes and all related structures Conjunctivae: conjunctivae normal Neck Neck: Yes full ROM and Yes no lymphadenopathy Resp Effort & Inspection: normal respiratory effort Auscultation: clear to auscultation bilaterally, no crackles, no rales, no rhonchi and no wheezes Cardio Rate: regular rate Rhythm: regular rhythm Skin General skin exam: no rashes or lesions noted Neuro General: patient oriented x3 Gait exam (Neuro): Normal gait present Extrem General: Yes normal to inspection, Yes full ROM and No edema Psych Affect: normal affect Attitude: cooperative Insight: Good insight present (Psych) Judgement: Good judgement present (Psych) Coding Level of Care Code Est Pt Level 3 (13664) Diagnoses GERD (gastroesophageal reflux disease) K21.9 Depression F32.A Anxiety F41.9 Constipation K59.00 Asthma J45.909 Dysmenorrhea N94.6 Unprotected sex Z72.51 Assessment & Plan Assessment & Plan (1) GERD (gastroesophageal reflux disease): Code(s): K21.9 - Gastro-esophageal reflux disease without esophagitis Category: Medical Plan: Avoid trigger foods such as citrus, tomato products, soda, caffeine, spicy foods and other foods that may be irritating to your stomach. Avoid laying flat 3-4 hours after eating and elevate the head of the bed 30 degrees to prevent acid from moving into the esophagus. Continue on pantoprazole 20 mg. (2) Depression: Comment: Counselor through [facility] weekly Code(s): F32.A - Depression, unspecified Category: Medical Plan: Referral placed to outpatient psych clinic at last visit. Continue to follow with counselor. (3) Anxiety: Comment: Counselor through [facility] weekly Code(s): F41.9 - Anxiety disorder, unspecified Category: Medical Plan: Referral placed to outpatient psych clinic at last visit. Continue to follow with counselor. (4) Constipation: Code(s): K59.00 - Constipation, unspecified Category: Medical Plan: Patient having issues constipation. Explained the patient 3 rows of constipation; increase water intake, increase fiber intake and exercise as tolerated. Prescription was sent for both MiraLax and fiber supplement today with instructions on how to use these medications. (5) Asthma: Code(s): J45.909 - Unspecified asthma, uncomplicated Category: Medical Plan: Asthma currently controlled on present medications. Continue on albuterol as needed. Avoid triggers such as allergies. (6) Dysmenorrhea: Code(s): N94.6 - Dysmenorrhea, unspecified Category: Medical Plan: Patient having heavy painful periods was given ibuprofen through her career professional in his looking for refill. Refill for ibuprofen given today (7) Unprotected sex: Code(s): Z72.51 - High risk heterosexual behavior Category: Medical Plan: Patient had unprotected sex last night looking for prescription for plan be prescription sent to pharmacy. Plan This note was constructed using voice recognition software. While every effort has been made to ensure accuracy and fruit stuffer, still areas may have been included sometimes these areas may affect the content or meeting of the given symptoms. Total time spent caring for the patient today was 20 minutes. This includes time spent before the visit reviewing the chart, time spent during the visit, and time spent after the visit and documentation. Patient was informed and verbally consented to the use of an ambient scribe for clinic note documentation during this visit. Orders: Referrals Optometry Referral Z00.00 - Encounter for general adult medical examination without abnormal findings Medications: New polyethylene glycol 3350 (Miralax) 17 grams PO DAILY 119 grams 0RF psyllium husk (Metamucil) 0.4 grams PO BEDTIME 30 caps 1RF ibuprofen 800 mg PO Q8H PRN 90 tabs 0RF pain levonorgestrel (Plan B One-Step) 1.5 mg PO ONCE 1 tab 0RF
[2024-12-17 11:02] VITALS: BP 112/72; PULSE 82; TEMP 36.3; O2SAT 98; BMI 25.4
== END 2024-12-17 11:34 | disposition home or self-care (01) ==
LOC: HO.HMCH 10:57
DX: K21.9 Gastro-esophageal reflux disease without esophagitis (principal); F32.A Depression, unspecified; F41.9 Anxiety disorder, unspecified; K59.00 Constipation, unspecified; J45.909 Unspecified asthma, uncomplicated; N94.6 Dysmenorrhea, unspecified; Z72.51 High risk heterosexual behavior

== ENCOUNTER → 2024-12-17 10:56 | Outpatient (BNVA) | payer OTHER, SELFPAY | DX: K21.9 Gastro-esophageal reflux disease without esophagitis (principal); J45.909 Unspecified asthma, uncomplicated; F90.9 Attention-deficit hyperactivity disorder, unspecified type; F41.9 Anxiety disorder, unspecified; F32.A Depression, unspecified; N94.6 Dysmenorrhea, unspecified; K59.00 Constipation, unspecified; Z72.51 High risk heterosexual behavior; Z79.899 Other long term (current) drug therapy | CPT/HCPCS: 99212 ==

== ENCOUNTER 2025-03-03 11:02 | Outpatient (AMB) | payer OTHER, SELFPAY ==
--- NOTE | 2025-03-03 11:05 | MHC.PC.OV ---
Vital Signs 03/03/25 11:07 Height 5 ft 8.9 in Weight 170 lb 4 oz BMI 25.2 BP 118/62 Blood Pressure Location Lt brachial Position Sitting Pulse 82 Pulse Oximetry (%) 97 Oxygen Delivery Method Room Air Intake Visit Reasons: annual exam Grill Prep Cook Required: No Accompanied by: Self / Same As Patient Allergies acetaminophen (From Percocet) Allergy (Intermediate, Verified 03/03/25 11:23) upset stomach oxycodone (From Percocet) Allergy (Intermediate, Verified 03/03/25 11:23) upset stomach Medication List - Last Reconciled 03/03/25 by Cris Burden PA-C albuterol sulfate 90 mcg/actuation 2 puffs inhalation Q6H PRN dextroamphetamine-amphetamine 7.5 mg (Adderall) 7.5 mg PO BID ibuprofen 800 mg PO Q8H PRN ketoconazole 2% 1 appl topical 2XW levonorgestrel (Plan B One-Step) 1.5 mg PO ONCE lorazepam 0.5 mg PO BID PRN ondansetron 4 mg PO Q8H PRN pantoprazole 20 mg PO DAILY polyethylene glycol 3350 (Miralax) 17 grams PO DAILY psyllium husk (Metamucil) 0.4 grams PO BEDTIME Tobacco use date assessed: 03/03/25 Dental Screening Dental Screen Date: 03/03/25 Did you have a dental visit in the last 12 months?: Yes Did you have a dental problem in the last 6 months where you did not have access to dental care?: Yes HPI annual exam HPI Details 34-year-old female with past medical history of asthma, ADHD, anxiety, depression last seen 11/2024 presenting for annual exam. Presenting for an annual wellness visit. The patient is on Adderall 7.5 mg twice daily, which aids in managing focus and executive dysfunction. 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 asthma managed with albuterol as needed, with no recent exacerbations. Patient reporting left-sided low back pain that occurs while standing still or driving long distances in his relief by movement or sitting. This started recently and is worse at her job. She does wear supportive footwear and insoles. She also mentions numbness and tingling in the 4th and 5th digits bilaterally. Pap smear: follows with [facility] last seen 02/20/2025 Vaccinations: Up-to-date [facility] Medical History Surgical History History of wisdom tooth extraction Family History Other Mental health disorder Substance use disorder Social History Housing: Apartment Alcohol intake: never Patient Tobacco Use Status: Former Tobacco user Tobacco use type: Cigarette e-Cigarette/Vaping Use: Currently Using Second Hand Smoke Exposure: Yes Substance Use Type: Marijuana service: No Current occupational status: unemployed Cognitive needs: No Hearing needs: No Vision needs: Yes (Glasses) Questionnaire PHQ-9 Over the last 2 weeks, how often have you been bothered by any of the following problems? 1. Little interest or pleasure in doing things: nearly every day 2. Feeling down, depressed, or hopeless: more than half the days 3. Trouble falling or staying asleep, or sleeping too much: nearly every day 4. Feeling tired or having little energy: nearly every day 5. Poor appetite or overeating: nearly every day 6. Feeling bad about yourself - or that you are a failure or have let yourself or your family down: not at all 7. Trouble concentrating on things, such as reading the newspaper or watching television: nearly every day 8. Moving or speaking so slowly that other people could have noticed. Or the opposite - being so fidgety or restless that you have been moving around a lot more than usual: nearly every day 9. Thoughts that you would be better off or of hurting yourself in some way: not at all Total score: 20 Depression Screening Interpretation: Positive Depression Screening Follow-up: Existing condition and In treatment Depression Screening Done: Yes Source: Developed by Drs. Nirav Mario, Brigette Blank, Ty Capone and colleagues, with an educational lelia from [employer]. Thrive Questionnaire Date Thrive assessed: 03/03/25 I am a: Patient What is your living situation today?: I have a steady place to live Within the past 12 months, did the food you bought not last and you didn't have the money to get more?: Sometimes True Within the past 12 months, did you worry whether your food would run out before you got money to buy more?: Sometimes True Do you have trouble paying for medicines?: No Do you have trouble getting transportation to medical appointments?: No Do you have trouble paying your heating and electricity bill?: No Do you have trouble taking care of your child, family member or friend?: No Do you have trouble with day-to-day activities such as bathing, preparing meals, shopping, managing finances, etc.?: I choose not to answer this question Are you currently unemployed and looking for a job?: Yes Are you interested in more education?: Yes Please select the resources that you would like help with: None Currently or been in a relationship where the following occur: No concerns reported THRIVE Score: 2 RAUDEL-7 AMB Questionnaire RAUDEL-7 Date RAUDEL - 7 assessed: 03/03/25 Source: Developed by Drs. Nirav Mario, Brigette Blank, Ty Capone and colleagues, with an educational lelia from [employer]. Review of Systems Const Denies body aches, Denies fatigue, Denies fever(s), Denies frequent falls, Denies headache(s) and Denies weakness Eyes Reports no additional complaints, Denies change in vision and Reports requires corrective lenses ENT Denies dysphagia, Denies dizziness, Denies facial pain, Denies headache(s), Denies nasal congestion and Denies odynophagia Card Denies chest pain, Denies syncope, Denies irregular heart rhythm, Denies leg edema, Denies lightheadedness and Denies dyspnea Resp Denies cough and Denies dyspnea GI Denies abdominal pain, Reports constipation, Denies dysphagia, Denies dyspepsia, Denies diarrhea, Denies nausea, Denies odynophagia and Denies vomiting Denies urinary frequency, Denies dysuria, Denies urinary hesitancy and Denies urinary urgency Musc Reports back pain and Denies myalgias Skin/Breast Reports system reviewed and no additional complaints, except as documented Neuro Denies dizziness, Denies syncope, Denies frequent falls, Denies headache(s) and Denies weakness Psych Reports no additional complaints Endo Denies fatigue Physical exam (Primary Care) Vital Signs: Last Vital Signs Pulse 82 03/03/25 11:07 BP 118/62 03/03/25 11:07 Pulse Ox 97 03/03/25 11:07 Oxygen Delivery Method Room Air 03/03/25 11:07 BMI result Body Mass Index 25.2 Tobacco/Smoking Status: Tobacco use Status Tobacco use date assessed 03/03/25 03/03/25 11:11 Patient Tobacco Use Status Former Tobacco user 03/03/25 11:11 Tobacco use type Cigarette 03/03/25 11:11 e-Cigarette/Vaping Use Currently Using 03/03/25 11:11 PHQ-9: PHQ-9 Score PHQ-9: Total score 20 03/03/25 11:29 Depression Screening Interpretation: Positive Depression Screening Follow-up: Existing condition and In treatment Thrive Assessment: Date of Thrive Assessment Date Thrive assessed 03/03/25 03/03/25 11:11 Currently or been in a relationship where the following occur: No concerns reported Const General: cooperative, healthy appearing, comfortable and no acute distress Orientation/consciousness: patient oriented x3 HENMT Head: Yes normocephalic Ears: hearing grossly normal bilaterally, external ears normal, TM's normal bilaterally and EAC's normal General nose exam: Normal external nose present Face and sinus: Yes normal facial exam and Yes sinuses nontender Mouth: Normal oral and palatal mucosa present and tongue normal Throat: Yes posterior oropharynx normal Eyes General: appearance normal, both eyes and all related structures Conjunctivae: conjunctivae normal Pupils: Equal, round and reactive pupils present EOM: EOMs intact bilaterally and No Nystagmus present Neck Neck: Yes normal visual inspection, Yes full ROM and Yes no lymphadenopathy Chest Chest palpation & inspection: normal inspection of the chest Resp Effort & Inspection: normal respiratory effort Auscultation: clear to auscultation bilaterally, no crackles, no rales, no rhonchi, no wheezes and breath sounds present Cardio Rate: regular rate Rhythm: regular rhythm Peripheral pulses: radial pulses present and dorsalis pedis present GI Inspection: Yes normal to inspection and No Abdominal wall edema Palpation (GI): Soft to palpation, not firm and nontender Auscultation: normal bowel sounds Rectal Exam - Female: deferred Back/Spine/Pelvis Other: No tenderness to palpation over entirety of spine or paraspinal muscles Skin General skin exam: no rashes or lesions noted Neuro General: patient oriented x3 Cranial nerves: Yes Equal, round and reactive pupils present, Yes Midline tongue present, Yes Ability to bilaterally elevate shoulders present and No Nystagmus present Gait exam (Neuro): Normal gait present Extrem Other: Intact strength, sensation, pulses in bilateral upper extremities General: Yes normal to inspection, Yes full ROM, No no pedal edema and No edema Psych Speech and movement: Normal speech and movement present Affect: normal affect Insight: Good insight present (Psych) Judgement: Good judgement present (Psych) Coding Level of Care Code Est Pt Prev Care 18-39y(91298) Diagnoses Annual physical exam Z00.00 GERD (gastroesophageal reflux disease) K21.9 ADHD F90.9 Depression F32.A Anxiety F41.9 Constipation K59.00 Asthma J45.909 Dysmenorrhea N94.6 Vitamin D deficiency E55.9 Low back pain M54.50 Bilateral hand numbness R20.0 Assessment & Plan Assessment & Plan (1) Annual physical exam: Code(s): Z00.00 - Encounter for general adult medical examination without abnormal findings Category: Medical Plan: Patient is up-to-date on all recommended routine screenings and vaccinations for her age. Blood work is up-to-date and has been reviewed with the patient today. Healthy diet and regular exercise is encouraged. (2) GERD (gastroesophageal reflux disease): Code(s): K21.9 - Gastro-esophageal reflux disease without esophagitis Category: Medical Plan: Avoid trigger foods such as citrus, tomato products, soda, caffeine, spicy foods and other foods that may be irritating to your stomach. Avoid laying flat 3-4 hours after eating and elevate the head of the bed 30 degrees to prevent acid from moving into the esophagus. Continue on pantoprazole 20 mg. (3) ADHD: Comment: [facility] 02/2025 Code(s): F90.9 - Attention-deficit hyperactivity disorder, unspecified type Category: Medical Plan: Continue to follow with [facility] and recently started on Adderall and finds this beneficial. (4) Depression: Comment: Counselor through [facility] 02/2025 Code(s): F32.A - Depression, unspecified Category: Medical Plan: Continue to follow with counselor. (5) Anxiety: Comment: Counselor through [facility] 02/2024 Code(s): F41.9 - Anxiety disorder, unspecified Category: Medical Plan: On Ativan BID as needed and feels this is helpful. Continue to follow with counselor and med provider through [facility] (6) Constipation: Code(s): K59.00 - Constipation, unspecified Category: Medical Plan: Resolve with time. (7) Asthma: Code(s): J45.909 - Unspecified asthma, uncomplicated Category: Medical Plan: Asthma currently controlled on present medications. Continue on albuterol as needed. Avoid triggers such as allergies. (8) Dysmenorrhea: Comment: [facility] Code(s): N94.6 - Dysmenorrhea, unspecified Category: Medical Plan: Patient continues to follow [facility] for annual exam and last seen 02/20/2025. She is scheduled for bilateral tubal ligation April 25. (9) Vitamin D deficiency: Code(s): E55.9 - Vitamin D deficiency, unspecified Category: Medical Plan: Continue with vitamin-D supplementation (10) Low back pain: Code(s): M54.50 - Low back pain, unspecified Category: Medical Plan: No tenderness to palpation over the spine or paraspinal muscles. Likely muscular in nature recommend gentle stretching and strengthening. I did offer a referral to physical therapy which was declined today. Patient may discontinue use Tylenol and ibuprofen as needed for pain. Discussed posture modification as well. (11) Bilateral hand numbness: Code(s): R20.0 - Anesthesia of skin Category: Medical Plan: Patient having bilateral numbness and tingling of the 4th and 5th digits consistent with ulnar neuropathy. 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 Recommend avoiding leaning on the elbows and activity modification. Plan to obtain EMG if symptoms worsen or become more persistent. Plan The patient will continue with Adderall for ADHD management and use lorazepam as needed for anxiety. Asthma will be managed with albuterol, and the patient is scheduled for a salpingectomy to address dysmenorrhea. Back pain management includes stretching and strengthening exercises, with physical therapy as a potential option if needed. For ulnar nerve entrapment, ergonomic adjustments and avoiding elbow pressure are recommended, with a possible referral to orthopedics if symptoms persist. This note was constructed using voice recognition software. While every effort has been made to ensure accuracy and technical training instructor, still areas may have been included sometimes these areas may affect the content or meeting of the given symptoms. Total time spent caring for the patient today was 30 minutes. This includes time spent before the visit reviewing the chart, time spent during the visit, and time spent after the visit and documentation. Patient was informed and verbally consented to the use of an ambient scribe for clinic note documentation during this visit.
[2025-03-03 11:07] VITALS: BP 118/62; PULSE 82; O2SAT 97; BMI 25.2
--- OUTSIDE RECORDS SUMMARY | 2025-03-03 11:45 | XMS_ITS | Encounter Summary ---
Author Organization [facility] Address [address] [place] [address] [place] [phone] Phone Care Team Providers Care Consultant Name Role Phone Valentin Cornelius MD Primary Care Provider [phone] Reason for Visit * Reason Onset Date Comments Scheduling Surgery 10/21/2024 Encounter Details Date Type Department Care Team ([facility] st Contact Info) Description 10/21/2024 Telephone [facility] [address] [place] [phone] Kimberly Priest MD [address] [facility], [address] [place] [address] [email or web address] Scheduling Surgery Social History Tobacco Use Types Packs/Day Years Used Date Smoking Tobacco: Former Smokeless Tobacco: Never Alcohol Use Standard Drinks/Week Comments Not Currently 0 (1 standard drink = 0.6 oz pur e alcohol) Education Answer Date Recorded Are you interested in more education? Not on velia e 11/18/2022 Are you concerned about learning? Not on file 11/18/2022 No 11/18/2022 No 11/18/2022 Digital Access Answer Date Recorded No 12/18/2022 No 12/18/2022 Reliable internet access at home? Not on file 12/18/2022 Device with a working camera? 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 Please review pre op instructions with her, can do consent on day of surgery * Mirza Gill - 02/28/2025 9:50 AM EDT Chang, scheduled 04/24/25. Reminder for self, call pt once PA is approved pt wants to call insurance for out of pocket cost. Zayda, does this pt need a pre op? She does not want to do one unless she has to. * Mirza Gill - 02/11/2025 9:09 AM EDT lmom * Mirza Gill - 12/24/2024 8:57 AM EDT Chang, wanting to schedule for late March / early April. Advised I will call back once we have those schedules. * Mirza Gill - 11/28/2024 10:18 AM EDT lmom * Mirza Gill - 11/14/2024 12:45 PM EDT lmom * Mirza Gill - 11/05/2024 2:47 PM EDT lmom * Kimberly Priest MD - 10/24/2024 9:45 AM EDT I would recommend no swimming for 1 week * Finesse Arauz - 10/23/2024 3:44 PM EDT Spoke with patient regarding scheduling surgery. Patient advised that she swims from [facility] - and is wondering how soon after the procedure can she swim. Advised I would need to send to provider for review and will call back to advise and schedule accordingly. To KK. * Tyler Osorio - 10/21/2024 11:08 AM EDT Pt lvm to reschedule appointment. Pt stated she had received a call a month ago to schedule surgery but had missed the call and triedto call back a couple seconds later. Pt stated that she was not able to get through and has no received any other call back. Pt would like a call back to schedule this. documented in this encounter Plan of Treatment Upcoming Encounters Date Type Department Care Team (Latest Contact Info) Description 04/24/2025 Procedure Pass OR Admitting Dept - Virtual Department [address] [place] [phone] 04/24/2025 7:30 AM EDT Hospital Encounter OR Admitting Dept - Virtual Department [address] [place] [phone] Kimberly Priest MD [address] [place] [address], [address] [place] [address] [email or web address] 04/24/2025 7:30 AM EDT - 04/24/2025 8:52 AM EDT Surgery OR Admitting Dept - Virtual Department [address] [place] [phone] Kimberly Priest MD [address] [place] [address], [address] [place] [address] [email or web address] LAPAROSCOPIC SALPINGECTOMY BILATERAL Scheduled Procedures Name Priority Associated Diagnoses Date/Ti il LAPAROSCOPIC SALPINGECTOMY BILATERAL Request for sterilization 04/24/2025 7:30 AM EDT documented as of this encounter Visit Diagnoses Not on filedocumented in this encounter Care Teams Consultant Relationship Specialty Start Date End Date Valentin Cornelius MD [address] [place] [address] PCP - General 04/20/22 documented as of this encounter Additional Source Comments The information contained in this document represents components of the legal health record. It is not the complete legal health record.[facility]
--- OUTSIDE RECORDS SUMMARY | 2025-03-03 11:46 | XMS_ITS | Clinical Summary ---
Author Organization [employer] Address [address] [place] [facility] [address] [place] [address] Care Team Providers Care Telephone Station Repairer Name Role Phone Unavailable Primary Care Provider [...] 1991 Lipid Panel 1991 SDOH Screening 1991 Disability Screening 1991 Alcohol/Substance Use Screening 2003 Family Planning (PISQ) 2006 HPV Vaccines (1 - 3-dose series) 2006 Hepatitis C Screening 2009 Pneumococcal Vaccine: Pediatrics (0 to 5 Years) and At-Risk Patients (6 to 49) Years (1 of 2 - PCV) 2010 Pap Smear 2012 DTaP/Tdap/Td Vaccines (7 - Td or Tdap) 10/08/2018 10/08/2008, 02/13/2002, 12/15/1995, Additional history exists Cervical Cancer Screening 2021 HPV/Cotest 2021 COVID-19 Vaccine ( - season) 2024 Dental Oral Exam 11/16/2024 05/17/2024 Dental Prophylaxis 11/16/2024 05/17/2024 Influenza Vaccine (#1) 2025 04/11/2011, 2009 Tobacco Screening 05/17/2025 05/17/2024 Dental X-Ray: Bitewings [...] 08/15/2006, 04/16/2003, 04/19/2002 Meningococcal Vaccine Completed 10/08/2008 Hepatitis A Vaccines Aged Out No long er eligible based on patient's age to complete this topic Meningococcal B Vaccine Aged Out No l onger eligible based on patient's age to complete [...] Most Recently Relevant to Health Maintenance Insurance [facility] MEDICAID STAND ADULT
== END 2025-03-03 11:46 | disposition home or self-care (01) ==
LOC: HO.HMCH 11:04
DX: Z00.00 Encounter for general adult medical examination without abnormal findings (principal); K21.9 Gastro-esophageal reflux disease without esophagitis; F90.9 Attention-deficit hyperactivity disorder, unspecified type; F32.A Depression, unspecified; F41.9 Anxiety disorder, unspecified; K59.00 Constipation, unspecified; J45.909 Unspecified asthma, uncomplicated; N94.6 Dysmenorrhea, unspecified; E55.9 Vitamin D deficiency, unspecified; M54.50 Low back pain, unspecified; R20.0 Anesthesia of skin

== ENCOUNTER → 2025-03-03 11:02 | Outpatient (BNVA) | payer OTHER, SELFPAY | DX: Z00.00 Encounter for general adult medical examination without abnormal findings (principal); J45.909 Unspecified asthma, uncomplicated; F90.9 Attention-deficit hyperactivity disorder, unspecified type; F41.9 Anxiety disorder, unspecified; F32.A Depression, unspecified; M54.50 Low back pain, unspecified; R20.0 Anesthesia of skin; R20.2 Paresthesia of skin; K21.9 Gastro-esophageal reflux disease without esophagitis; K59.00 Constipation, unspecified; N94.6 Dysmenorrhea, unspecified; E55.9 Vitamin D deficiency, unspecified; Z79.899 Other long term (current) drug therapy | CPT/HCPCS: 99395 ==